=== PATIENT | male | born 1995 | race Caucasian/White ===

== ENCOUNTER → 2023-09-07 11:18 | Outpatient (REF) | payer BC, SELFPAY | LOC: MRI 3T 11:18 | PROVIDERS: ATTENDING PHYSICIAN Internal Medicine Gastroenterology; FAMILY PHYSICIAN Family Medicine | DX: K50.80 Crohn's disease of both small and large intestine without complications (principal) | CPT/HCPCS: 72197; 74183; A9575 ==